=== PATIENT | female | born 1990 | race Caucasian/White ===

== ENCOUNTER 2022-01-22 08:00 | Outpatient (NON) | payer OTHER, SELFPAY | END 2022-01-22 08:01 | disposition home or self-care (01) | PROVIDERS: PCP Emergency Medicine; Visit Provider Internal Medicine Gastroenterology | DX: K58.0 Irritable bowel syndrome with diarrhea (principal) | CPT/HCPCS: 88305 ==

== ENCOUNTER 2022-01-22 09:44 | Day surgery (SDC) | payer OTHER, SELFPAY ==
[2021-11-16 09:45] VITALS: BMI 32.3
[2022-01-03 13:23] VITALS: BMI 31.1
[2022-01-22 10:04] VITALS: BP 120/95; PULSE 95; RESP 20; TEMP 36.3; O2SAT 100
[2022-01-22] MEDS: LACTATED RINGERS 1,000 ML 150 ML IV CONT (10:11)
--- NOTE | 2022-01-22 10:12 | WPDANESEPPF ---
Anes - Initial Pre Proc Eval Procedure: Operation Date: 01/22/22 10:15 Proposed Procedures p Diagnostic Colonoscopy - Marques Salinas MD Date/Time: 01/22/22 10:12 Surgeon: Marques Salinas MD Pre Op Diagnosis: ISB and Diarrhea Patient Data Age: 31 Gender: F Height: 1.5 m Weight: 68.7 kg Last Vital Signs Temp 36.3 C L 01/22/22 10:04 Pulse 95 01/22/22 10:04 Resp 20 01/22/22 10:04 BP 120/95 H 01/22/22 10:04 Pulse Ox 100 01/22/22 10:04 O2 Del Method Room Air 01/22/22 10:04 Allergies Allergy/AdvReac Type Severity Reaction Status Date / Time No Known Allergies Allergy Verified 01/22/22 09:58 Home Medications Medication Instructions Recorded Confirmed Type etonogestrel 68 mg subdermal 1 implant subdermal ONCE 06/07/21 01/22/22 History implant (Nexplanon) lisdexamfetamine 30 mg capsule 30 mg PO DAILY 01/03/22 01/22/22 History (Vyvanse) Patient hx anesthesia problems: none Family hx anesthesia problems: none Results Review: All pre-operative results and documents have been reviewed as part of the pre-operative evaluation. 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 Gender identity (if verbalized by the patient): Female Sexual Orientation (if Verbalized by the Patient): Straight or Heterosexual Spiritual care concerns: No Anes - Eval Final PreProcedure Day of Procedure 01/22/22 10:12 Patient weight: overweight Heart: regular rate and rhythm Lungs: clear to auscultation Airway: Mallampati scale class II Neurological: alert and oriented ASA classification: II Emergent: no Anesthetic plan: proceed Anesthesia type and monitoring: general GIVS and standard monitoring Results Review: All pre-operative results and documents have been reviewed as part of the pre-operative evaluation. Informed Consent: The patient's anesthetic plan and its attendant risks and benefits were discussed with the patient/family/POA. Questions were solicited and answers provided to the satisfaction of the patient/family/POA.
--- NOTE | 2022-01-22 10:30 | PM.HPGS ---
History of Present Illness History of Present Illness Consent: Risks, benefits, and alternatives have been discussed and questions answered. Patient agrees to proceed with procedure. Chief complaint: ISB and Diarrhea Narrative: Saida Garay is a 31 year old female with ibs-d for years, never had colonoscopy, using peptobismol prn Review of Systems Constitutional: Constitutional: Denies headache(s) and Denies weakness Eyes: Eyes: Denies blurry vision ENT: Reports Normal hearing present, Denies headache(s) and Denies neck pain Cardiovascular: Cardiovascular: Denies chest pain and Denies dyspnea Respiratory: Respiratory: Denies dyspnea Gastrointestinal: Gastrointestinal: Reports no additional gastrointestinal complaints Genitourinary: Genitourinary: Denies dysuria Musculoskeletal: Musculoskeletal: Denies neck pain Integumentary/Breasts: Skin/Breast: Denies dry skin Neurologic: Reports Normal hearing present, Denies headache(s) and Denies weakness Psychiatric: Psychiatric: Denies anxiety Endocrine: Endocrine: Denies change in body appearance Hematologic/Lymphatic: Hematologic/Lymphatic: Denies easy bleeding Allergic/Immunologic: Allergic/Immunologic: Denies urticaria PMFSH Past Medical History Medical History (Updated 01/22/22 @ 10:30 by Marques Salinas MD) Encounter for removal and reinsertion of Nexplanon 08/09/2021 HSV-2 (herpes simplex virus 2) infection Insertion of Nexplanon nexplanon removal / reinsertion - 2016 Irritable bowel syndrome with diarrhea Family History Family History Other Endometriosis Hypertension Social History Social History Smoking status: Never smoker Alcohol intake: never Substance use: never Substance use type: does not use Living arrangements: with family 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 Gender identity (if verbalized by the patient): Female Sexual Orientation (if Verbalized by the Patient): Straight or Heterosexual Spiritual care concerns: No Meds Home Medications and Allergies Home Medications Medication Instructions Recorded Confirmed Type etonogestrel 68 mg subdermal 1 implant subdermal ONCE 06/07/21 01/22/22 History implant (Nexplanon) lisdexamfetamine 30 mg capsule 30 mg PO DAILY 01/03/22 01/22/22 History (Vyvanse) Allergies Allergy/AdvReac Type Severity Reaction Status Date / Time No Known Allergies Allergy Verified 01/22/22 09:58 Vital Signs Vital Signs - 24 hr 01/22/22 10:04 Temperature 97.3 F L Pulse Rate 95 Respiratory Rate 20 Blood Pressure 120/95 H Pulse Oximetry 100 Oxygen Delivery Room Air Exam Const: General: comfortable and no acute distress HENMT: Face/Nose/Sinus: Normal nares present Eyes: General: appearance normal, both eyes and all related structures Neck: Neck: no JVD Resp: Auscultation: clear to auscultation bilaterally Cardio: Rate: regular rate Rhythm: regular rhythm GI: Inspection: non-distended GI Palp: Yes Soft to palpation Skin: General skin exam: normal color Neuro: General: gait normal Speech: normal speech Extrem: General: normal to inspection Psych: Mental Status: mental status grossly normal Assessment and Plan Assessment and plan (1) Irritable bowel syndrome with diarrhea: Code(s): K58.0 - Irritable bowel syndrome with diarrhea Status: Acute Assessment and Plan: colonoscopy with random colon bx
[2022-01-22 10:49] VITALS: BP 92/62; PULSE 103; RESP 14; O2SAT 99
[2022-01-22 10:59] VITALS: BP 94/70; PULSE 89; RESP 13; O2SAT 100
--- NOTE | 2022-01-22 11:01 | WPDANESPN ---
Anes - Prog Note Post-Op Date/Time: 01/22/22 11:01 Cardiovascular status: normal Respiratory status: normal Airway patency: baseline Mental status: baseline Post-Op hydration status: normal Vital Signs: Last Vital Signs Temp 36.3 C L 01/22/22 10:04 Pulse 103 H 01/22/22 10:49 Resp 14 01/22/22 10:49 BP 92/62 L 01/22/22 10:49 Pulse Ox 99 01/22/22 10:49 O2 Del Method Room Air 01/22/22 10:49 Pain Score (VAS): 0/10 I/O: Intake & Output 01/21/22 01/22/22 01/22/22 23:59 07:59 15:59 Intake Total 400 Balance 400 Patient Feedback: Patient satisfied with anesthetic care.
[2022-01-22 11:09] VITALS: BP 99/71; PULSE 89; RESP 13; O2SAT 100
== END 2022-01-22 11:31 | disposition home or self-care (01) ==
PROVIDERS: PCP Emergency Medicine; Visit Provider Internal Medicine Gastroenterology
PROC: 0DJD8ZZ Inspection of Lower Intestinal Tract, Via Natural or Artificial Opening Endoscopic (ICD-10-PCS; CPT 45378; principal; 2022-01-22 10:15)
DX: K58.0 Irritable bowel syndrome with diarrhea (principal)
CPT/HCPCS: 45380